=== PATIENT | female | born 1995 | race Caucasian/White ===

== ENCOUNTER 2018-04-23 12:57 | Emergency (ER) | payer MEDICAID ==
[~2018-04-23] VITALS: Ht 175.3 cm; Wt 77.3 kg
[~2018-04-23 12:57] MED LIST: IBUPROFEN 600MG PO; METH4TAB3 PO; NORG1TAB56 PO
[2018-04-23] MEDS ORDERED: AMOX-422 PO (14:08)
[2018-04-23 14:33] VITALS: BP 136/63
== END 2018-04-23 14:30 | disposition home or self-care (01) ==
LOC: ER 12:57
DX: S51.852A Open bite of left forearm, initial encounter (principal); L53.8 Other specified erythematous conditions; J45.909 Unspecified asthma, uncomplicated; M81.0 Age-related osteoporosis without current pathological fracture; Z79.899 Other long term (current) drug therapy; W55.81XA Bitten by other mammals, initial encounter; Y93.89 Activity, other specified; Y92.89 Other specified places as the place of occurrence of the external cause; Y99.8 Other external cause status
CPT/HCPCS: 99283